=== PATIENT | male | born 1940 | race Caucasian/White ===

== ENCOUNTER → 2021-11-27 | Outpatient (CLI) | payer MEDICARE ==
[~2021-11-27] VITALS: Ht 182.9 cm; Wt 64.0 kg
== END ==
LOC: EROP 13:01
DX: U07.1 COVID-19 (principal); Z23 Encounter for immunization; E11.9 Type 2 diabetes mellitus without complications; I10 Essential (primary) hypertension
CPT/HCPCS: J0360; M0247; Q0247